=== PATIENT | male | born 1965 | race Two or more races ===

== ENCOUNTER → 2025-06-10 | Outpatient (CLI) | payer BC, SELFPAY ==
--- NOTE | 2025-06-10 16:17 | XR_ITS ---
Examination: Knee bilateral, 6 views Technique: Knee AP, lateral, oblique each knee total 6 views Date and time of exam: June 10, 2025, 1625 hours INDICATIONS: Patient fell 3 years ago with injury to both knees, bilateral knee pain. 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
== END | disposition home or self-care (01) ==
PROVIDERS: PCP Physician Assistant; Referring Provider Physician Assistant; Visit Provider Physician Assistant
DX: M17.0 Bilateral primary osteoarthritis of knee (principal); S89.92XS Unspecified injury of left lower leg, sequela; S89.91XS Unspecified injury of right lower leg, sequela; W19.XXXS Unspecified fall, sequela
CPT/HCPCS: 73562